=== PATIENT | male | born 1960 | race African-American/Black ===

== ENCOUNTER → 2023-08-24 | Day surgery (SDC) | payer BC ==
[2023-08-21 08:50] LABS: BASOPHILS # (AUTO) 0.1 (0.0-0.1); BASOPHILS % 0.7 % (0.0-1.0); EOSINOPHILS # (AUTO) 0.1 (0.0-0.4); EOSINOPHILS % 1.2 % (0.0-6.0); HEMOGLOBIN 16.6 g/dL (14.0-18.0); LYMPHOCYTES # (AUTO) 3.2 (1.0-3.2); LYMPHOCYTES % 35.3 % (18.0-39.1); MEAN CORPUSCULAR HEMOGLOBIN 31.3 pg (28-32); MEAN CORPUSCULAR HGB CONC 34.6 g/dL (31-35); MEAN CORPUSCULAR VOLUME 90.6 fL (81-99); MONOCYTES # (AUTO) 0.8 (0.2-0.8); MONOCYTES % 9.2 % (4.4-11.3); NEUTROPHILS # (AUTO) 4.9 (2.1-6.9); NEUTROPHILS % 53.4 % (38.7-80.0); PLATELET COUNT 235 x10e3/uL (140-360); RED CELL DISTRIBUTION WIDTH 13.2 % (11.7-14.4); WHITE BLOOD COUNT 9.09 x10e3/uL (4.8-10.8)
[~2023-08-24] MED LIST: ACETAMINOPHEN 1000 MG/100 ML IV ONE; BUPIVACAINE HCL 0.5% INJ 30 ML VIAL INJ ONE; CYCLOBENZAPRINE5 MG PO; DEXAMETHASONE SOD PHOS 10 MG/1 ML VIAL ONE; DEXAMETHASONE SOD PHOS INJ 4 MG/ML SDV ONE; FENTANYL CITRATE/PF 100MCG/2 ML INJ ONE; LIDOCAINE 1% W/EPINEPHRINE 20 ML VIAL ONE; LIDOCAINE HCL 2% LOCAL INJ 5 ML SDV VIAL INJ ONE; MIDAZOLAM HCL 2 MG/2 ML VIAL ONE; ONDANSETRON HCL INJ 2MG/ML 2ML 2 MG/ML VIAL ONE; PROPOFOL IV EMULSION 10 MG/ML 20 ML VIAL ONE; ROPIVACAINE 0.5% 5 MG/ML 30 ML SDV ONE; SEVOFLURANE INHAL SOLN 250 ML PEN BTL ONE
[2023-08-24] MEDS: CEFAZOLIN SODIUM 2 GM ONE (06:02)
[2023-08-24] MEDS: LACTATED RINGER'S 1,000 ML ONE (06:02)
[2023-08-24 08:16] VITALS: TEMP 97.9
[2023-08-24] MEDS: FENTANYL CITRATE/PF 100MCG/2 ML INJ ONE (08:38)
[2023-08-24] MEDS: HYDROCODONE/APAP 7.5MG-325MG 1 EA TAB ONE (09:15)
[2023-08-24 09:30] VITALS: BP 143/93; PULSE 62; RESP 16; O2SAT 96
== END | disposition home or self-care (01) ==
LOC: OR 05:13
PROVIDERS: ATTEND Orthopaedic Surgery
DX: S83.231A Complex tear of medial meniscus, current injury, right knee, initial encounter (principal); S83.281A Other tear of lateral meniscus, current injury, right knee, initial encounter; M84.469A Pathological fracture, unspecified tibia and fibula, initial encounter for fracture; M22.41 Chondromalacia patellae, right knee; M67.51 Plica syndrome, right knee; Q76.0 Spina bifida occulta; K44.9 Diaphragmatic hernia without obstruction or gangrene; X58.XXXA Exposure to other specified factors, initial encounter; Z01.810 Encounter for preprocedural cardiovascular examination; Z01.812 Encounter for preprocedural laboratory examination; Z01.818 Encounter for other preprocedural examination; Z79.1 Long term (current) use of non-steroidal anti-inflammatories (NSAID)
CPT/HCPCS: 27599; 29881; 29999; 36415; 71046; 85025; 93005; C1713 ×2; J0131; J1100 ×2; J2001; J2250; J2405; J2704; J2795; J3010; J7121; 76000